=== PATIENT | male | born 1940 | race Caucasian/White ===

== ENCOUNTER 2018-07-10 10:50 | Outpatient (CLI) | payer MEDICARE, OTHER | END 2018-07-10 23:59 | disposition short-term general hospital (02) | LOC: EMS 10:50 | PROVIDERS: ATTEND Surgery | DX: R07.9 Chest pain, unspecified (principal) | CPT/HCPCS: A0425; A0427 ==

== ENCOUNTER 2020-09-14 08:00 | Outpatient (CLI) | payer MEDICARE, OTHER | END 2020-09-14 23:59 | disposition home or self-care (01) | LOC: LAB.R 08:00 | PROVIDERS: ATTEND Physician Assistant Medical | DX: R35.0 Frequency of micturition (principal); R30.0 Dysuria; N39.0 Urinary tract infection, site not specified | CPT/HCPCS: 87077; 87086; 87181 ==

== ENCOUNTER 2021-05-07 12:26 | Outpatient (CLI) | payer MEDICARE, OTHER | END 2021-05-07 12:27 | disposition short-term general hospital (02) | LOC: EMS 12:26 | DX: R07.9 Chest pain, unspecified (principal) | CPT/HCPCS: A0425; A0427 ==

== ENCOUNTER 2021-10-11 03:32 | Outpatient (CLI) | payer MEDICARE, OTHER | END 2021-10-11 03:33 | disposition critical access hospital (66) | LOC: EMS 03:32 | DX: R06.02 Shortness of breath (principal) | CPT/HCPCS: A0425; A0429 ==

== ENCOUNTER 2021-10-11 04:08 | Emergency (ER) | payer MEDICARE, OTHER ==
[2021-10-11 04:30] LABS: BASOPHILS # (AUTO) 0.1 10^3/uL (0.0-0.1); BASOPHILS % (AUTO) 0.7 %; EOSINOPHILS # (AUTO) 0.7 10^3/uL (0.0-0.7); EOSINOPHILS % (AUTO) 7.8 %; HCT - HEMATOCRIT 36.9 % (42.0-52.0); HGB - HEMOGLOBIN 11.4 g/dL (14.0-18.0); LYMPHOCYTES # (AUTO) 2.3 10^3/uL (1.5-3.5); LYMPHOCYTES % (AUTO) 27.3 %; MEAN CORPUSCULAR HEMOGLOBIN 27.8 pg (27.0-31.0); MEAN CORPUSCULAR HGB CONC 30.9 g/dL (32.0-36.0); MEAN PLATELET VOLUME 11.3 fL (7.4-11.4); MONOCYTES % (AUTO) 11.3 %; NEUTROPHILS # (AUTO) 4.4 10^3/uL (1.5-6.6); NEUTROPHILS % (AUTO) 52.7 %; PLT - PLATELET COUNT 186 10^3/uL (130-450); RED CELL DISTRIBUTION WIDTH 15.2 % (12.0-15.0); WHITE BLOOD COUNT 8.4 x10^3/uL (4.8-10.8)
[2021-10-11 04:43] LABS: ALBUMIN 3.5 g/dL (3.2-5.5); ALBUMIN/GLOBULIN RATIO 1.3 (1.0-2.2); BILIRUBIN,TOTAL 0.8 mg/dL (0.2-1.0); CALCIUM 8.2 mg/dL (8.5-10.3); CREATININE 1.8 mg/dL (0.6-1.2); POTASSIUM 4.5 mmol/L (3.5-5.0); TOTAL PROTEIN 6.3 g/dL (6.7-8.2)
--- NOTE | 2021-10-11 04:57 | ED Physician Documentation ---
PD HPI DYSPNEA - Stated complaint Stated Complaint: SOA - Chief complaint Chief Complaint: Cardiac - History obtained from History obtained from: Patient - History of Present Illness Timing - onset: How many days ago (5) Timing - onset during: Rest Timing - details: Gradual onset, Waxing and waning Pain level max: 0 Pain level now: 0 Worsened by: Other (no exacerbating factors) Associated symptoms: Bilateral edema. No: Fever, Cough, Hemoptysis, Wheezing, Chest pain / discomfort, Palpitations, Unilateral edema Similar symptoms before: No diagnosis - Additional information Additional information: BIBA. c/o dyspnea, sensation of not being able to get a full, satisfying breath in. 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 He switched from vicodin (prescribed on a regular basis for chronic pain) to buprenorphine and thinks this might be a causative/contributing factor. He last took vicodin in early August when the switch to buprenorphine was made. He was T+R from 2 days ago for these symptoms, no specific diagnosis was achieved (blood tests and imaging were performed). Review of Systems Constitutional: reports: Reviewed and negative Cardiac: reports: Pedal edema. denies: Chest pain / pressure, Palpitations Respiratory: reports: Dyspnea. denies: Cough, Hemoptysis, Wheezing GI: reports: Reviewed and negative PD PAST MEDICAL HISTORY - Past Medical History Cardiovascular: Hypertension Respiratory: None Endocrine/Autoimmune: None GI: None : Nocturia HEENT: None Psych: None Musculoskeletal: Osteoarthritis Derm: None - Past Surgical History Past Surgical History: Yes General: Appendectomy Ortho: Rotator cuff repair, Arthroscopic surgery HEENT: Tonsil/Adenoidectomy - Present Medications Home Medications: Ambulatory Orders Medication Instructions Recorded Confirmed Aspirin [Aspir 81] 81 mg ORAL DAILY 03/24/14 10/11/21 Multivitamin [Multivitamins] 1 tab ORAL DAILY 03/24/14 10/11/21 Tamsulosin [Flomax] 0.4 mg ORAL DAILY 03/24/14 10/11/21 Atorvastatin [Lipitor] 20 mg PO DAILY 10/11/21 10/11/21 Clopidogrel [Plavix] 300 mg PO DAILY 10/11/21 10/11/21 LORazepam [Ativan] 0.5 mg PO HS #10 tablet 10/11/21 Metoprolol Succinate [Toprol Xl] 25 mg PO DAILY 10/11/21 10/11/21 Omeprazole 40 mg PO DAILY 10/11/21 10/11/21 Tamsulosin [Flomax] 0.4 mg PO DAILY 10/11/21 10/11/21 buprenorphine HCL [Buprenorphine 2 mg PO DAILY 10/11/21 10/11/21 HCl] - Allergies Allergies/Adverse Reactions: Allergies Allergy/AdvReac Type Severity Reaction Status Date / Time No Known Drug Allergies Allergy Verified 04/18/14 23:26 - Social History Does the pt smoke?: No Smoking Status: Never smoker Does the pt drink ETOH?: No Does the pt have substance abuse?: No - Immunizations Immunizations are current?: Yes PD ED PE NORMAL - Vitals Vital signs reviewed: Yes - General General: Alert and oriented X 3, No acute distress, Well developed/nourished - Neck Neck: Supple, no meningeal sign - Cardiac Cardiac: RRR, No murmur - Respiratory Respiratory: No respiratory distress, Clear bilaterally - Abdomen Abdomen: Normal bowel sounds, Soft, Non tender, Non distended PD ED PE EXPANDED - Extremities Extremities: Pedal edema bilateral (mild BLE edema, pitting) Results - Vitals Vitals: Oxygen O2 Source Room air - EKG (time done) No standard instances Rate: Rate (enter#) (73) Rhythm: NSR [place]: LAD Intervals: Normal [place] QRS: Normal Ischemia: Normal ST segments, Non specific changes (flat T lateral leads) - Labs Labs: Laboratory Tests 10/11/21 10/11/21 10/11/21 04:20 04:20 04:20 WBC 8.4 RBC 4.10 L Hgb 11.4 L Hct 36.9 L MCV 90.0 MCH 27.8 MCHC 30.9 L RDW 15.2 H Plt Count 186 MPV 11.3 Neut # (Auto) 4.4 Lymph # (Auto) 2.3 [place] # (Auto) 1.0 Eos # (Auto) 0.7 Baso # (Auto) 0.1 Absolute Nucleated RBC 0.00 Nucleated RBC % 0.0 Sodium 136 Potassium 4.5 Chloride 103 Carbon Dioxide 25 Anion Gap 8.0 BUN 34 H Creatinine 1.8 H Estimated GFR (MDRD) 37 L Glucose 110 H Calcium 8.2 L Total Bilirubin 0.8 AST 20 ALT 15 Alkaline Phosphatase 54 Troponin I High Sens 10.2 B-Natriuretic Peptide Total Protein 6.3 L Albumin 3.5 Globulin 2.8 Albumin/Globulin Ratio 1.3 Lipase 25 10/11/21 04:20 WBC RBC Hgb Hct MCV MCH MCHC RDW Plt Count MPV Neut # (Auto) Lymph # (Auto) Butler # (Auto) Eos # (Auto) Baso # (Auto) Absolute Nucleated RBC Nucleated RBC % Sodium Potassium Chloride Carbon Dioxide Anion Gap BUN Creatinine Estimated GFR (MDRD) Glucose Calcium Total Bilirubin AST ALT Alkaline Phosphatase Troponin I High Sens B-Natriuretic Peptide 350 H Total Protein Albumin Globulin Albumin/Globulin Ratio Lipase - Rads (name of study) chest xray Radiology: Prelim report reviewed, See rad report PD MEDICAL DECISION MAKING - ED course ED course: patient is able to show some of the test results performed at 2 days ago; a d-dimer was performed and no significant elevation (300s), BNP 200s. patient describes dyspnea that has been ongoing for few months, but seems to be worse past 5 nights. He describes waking up tonight and past 4 nights gasping for breath (per patient) after having gone to sleep without significant dyspnea, and the difficulty breathing improves once he is up and walking around. Paroxysmal nocturnal dyspnea would fit on this differential. He shows me a text from one of his doctors that indicates recommendation for a trial of low-dose lasix to see if this helps with symptoms; he has not yet started this. I discussed results with patient, including abnormal kidney tests, and that renal function can deteriorate with higher doses and longer courses of furosemide. however, I agree that a short course of low-dose lasix would be appropriate , given his mild/moderate BLE edema and symptoms that suggest redistribution of this third-spaced fluid at night once his legs have been elevated. I emphasized the importance of follow up with his doctor for reevaluation and return precautions discussed. At this time, there is no obvious cause of his dyspnea such as pneumonia or ACS. Departure - Departure Disposition: 01 Home, Self Care Clinical Impression: Dyspnea Qualifiers: Dyspnea type: orthopnea Qualified Code(s): R06.01 - Orthopnea Condition: Good Instructions: ED Dyspnea Shortness of Breath Follow-Up: Orlando Minaya MD [Primary Care Provider] - Prescriptions: LORazepam [Ativan] 0.5 mg PO HS #10 tablet Comments: The cause of your shortness of breath is not apparent at this time. There are no findings on tonight's tests (EKG, chest xray, blood tests) that reveal or suggest a specific diagnosis. [facility] [place]. As we discussed, there might be an anxiety component to your shortness of breath and this medication often helps alleviate anxiety. Follow up with your primary care provider, as further testing might be needed, particularly if your symptoms persist or worsen. If your symptoms worsen, consider returning to the emergency department for reevaluation Discharge Date/Time: 10/11/21 07:57
[2021-10-11 07:58] VITALS: BP 162/70
--- NOTE | 2021-10-11 08:13 | XRAY Report ---
PROCEDURE: Chest 2 View X-Ray INDICATIONS: dyspnea TECHNIQUE: 2 view(s) of the chest. COMPARISON: None. FINDINGS: Surgical changes and devices: Median sternotomy. Low anterior cervical fusion. Lungs and pleura: No pleural effusions or pneumothorax. Mild patchy bibasilar atelectasis versus pne umonia. Mediastinum: Mediastinal contours are normal. Heart size is normal. Bones and chest wall: No suspicious bony abnormalities. Soft tissues appear unremarkable. IMPRESSION: Mild bibasilar atelectasis versus pneumonia. Concordant with preliminary interpretation. Reviewed by: Ema Walsh MD on 10/11/2021 8:11 AM PST Approved by: Ema Walsh MD on 10/11/2021 8:11 AM PST Station ID: [id number]
== END 2021-10-11 07:57 | disposition home or self-care (01) ==
LOC: EDUNIT# → ED 04:08 → SUPCPDRO 04:08 → ED 07:57
DX: R06.01 Orthopnea (principal); Z95.1 Presence of aortocoronary bypass graft; R60.9 Edema, unspecified; I10 Essential (primary) hypertension
CPT/HCPCS: 36415; 80053; 83690; 83880; 84484; 85025; 93005; 99284

== ENCOUNTER 2021-10-26 23:52 | Outpatient (CLI) | payer MEDICARE, OTHER | END 2021-10-26 23:53 | disposition short-term general hospital (02) | LOC: EMS 23:52 | DX: R06.01 Orthopnea (principal); R60.0 Localized edema | CPT/HCPCS: A0425; A0429 ==